=== PATIENT | male | born 1995 | race African-American/Black ===

== ENCOUNTER 2024-02-22 09:01 | Day surgery (SDC) | payer OTHER ==
[2024-02-19 15:59] VITALS: BMI 37.5
== END 2024-02-22 09:23 | disposition home or self-care (01) ==
LOC: FASU 09:01
PROVIDERS: ATTEND Orthopaedic Surgery Sports Medicine
PROC: 0SBD4ZZ Excision of Left Knee Joint, Percutaneous Endoscopic Approach (ICD-10-PCS; principal; 2024-02-22)
DX: Z53.8 Procedure and treatment not carried out for other reasons (principal); S83.282A Other tear of lateral meniscus, current injury, left knee, initial encounter; X58.XXXA Exposure to other specified factors, initial encounter; Y93.9 Activity, unspecified; Y92.9 Unspecified place or not applicable